=== PATIENT | female | born 1935 | race Caucasian/White ===

== ENCOUNTER 2018-07-29 10:35 | Inpatient (IN) | payer OTHER ==
[~2018-07-29] VITALS: Ht 162.6 cm; Wt 62.1 kg
[2018-08-17] MEDS ORDERED: COZAAR50 MG PO (15:07)
[2018-08-17] MEDS ORDERED: ZETIA10 MG PO (15:07)
[2018-08-17] MEDS ORDERED: MULTIPLE VITAM1 EACH PO (15:08)
[2018-08-17] MEDS ORDERED: DAFLON PO (15:08)
[2018-08-24] MEDS ORDERED: ULTRACET PO (14:07)
[2018-08-24] MEDS ORDERED: INTESTINEX680 M1 PO (14:07)
== END 2018-08-24 14:17 | disposition home or self-care (01) | DRG 331 ==
LOC: SURH 08-20 07:22 → O/R 08-20 07:22 → SURH 08-20 11:10 → O/R 08-20 13:15 → SURH 08-24 14:17
PROVIDERS: ADMIT Surgery
PROC: 0D1N4Z4 Bypass Sigmoid Colon to Cutaneous, Percutaneous Endoscopic Approach (ICD-10-PCS; principal; 2018-08-20 13:15)
DX: C18.7 Malignant neoplasm of sigmoid colon (principal); N73.6 Female pelvic peritoneal adhesions (postinfective); I10 Essential (primary) hypertension